=== PATIENT | female | born 1995 | race Caucasian/White ===

== ENCOUNTER 2022-11-15 06:06 | Day surgery (SDC) | payer OTHER ==
[2022-11-15] MEDS ORDERED: Sodium Chloride 0.9% 100 ML ONE (07:44)
[2022-11-15] MEDS ORDERED: Piperacillin/Tazobactam 3.375 GM VIAL ONE (07:44)
[2022-11-15] MEDS ORDERED: Bupivacaine/Epinephrine 0.25% 30 ML VIAL ONE (08:35)
[2022-11-15] MEDS ORDERED: fentaNYL PF 100 MCG/2 ML SYRINGE ONE (08:40)
[2022-11-15] MEDS ORDERED: Famotidine/PF 20 mg/2ml Vial ONE (08:41)
[2022-11-15] MEDS ORDERED: Succinylcholine Chloride 100 MG/5 ML SYRINGE FS ONE (08:51)
[2022-11-15] MEDS ORDERED: PROPOFOL 200 MG/20 ML VIAL ONE (08:51)
[2022-11-15] MEDS ORDERED: Lidocaine 1% PF 5 ML VIAL ONE (08:51)
[2022-11-15] MEDS ORDERED: Ondansetron PF 4 MG/2 ML Vial ONE (08:51)
[2022-11-15] MEDS ORDERED: Dexamethasone 20 MG/5 ML VIAL ONE (08:51)
[2022-11-15] MEDS ORDERED: Rocuronium Bromide 10 MG/ML (10ML VIAL) ONE (08:51)
[2022-11-15] MEDS ORDERED: Ketorolac Tromethamine 30 MG/ML VIAL ONE (08:51)
== END 2022-11-15 12:10 | disposition home or self-care (01) ==
LOC: SDC 06:06
PROVIDERS: ATTEND Surgery
PROC: 0DTJ4ZZ Resection of Appendix, Percutaneous Endoscopic Approach (ICD-10-PCS; principal; 2022-11-15)
DX: K35.80 Unspecified acute appendicitis (principal); K66.0 Peritoneal adhesions (postprocedural) (postinfection)
CPT/HCPCS: 88304; J1100; J1885; J2405; J2543; J2704; J3490; S0028